=== PATIENT | female | born 1965 | race Caucasian/White ===

== ENCOUNTER 2016-10-11 14:49 | Emergency (ER) | payer SELFPAY ==
[~2016-10-11] VITALS: Ht 157.5 cm; Wt 115.0 kg
[2016-10-11] MEDS ORDERED: KETOROLAC 60MG/2ML VIAL IM ONE (16:45)
[2016-10-11 17:00] LABS: BASOPHILS % 0.2 % (0.0-2.0); EOSINOPHILS % 3.4 % (0.0-5.0); HEMOGLOBIN. 10.8 g/dL (12.0-16.0); LYMPHOCYTES % 24.9 % (20.0-50.0); MEAN CORPUSCULAR HEMOGLOBIN 25.5 pg (28.0-32.0); MEAN CORPUSCULAR VOLUME 80.1 fL (81.0-99.0); MEAN PLATELET VOLUME 7.6 fl (7.4-10.4); MONOCYTES % 5.9 % (2.0-8.0); NEUTROPHILS % 65.6 % (40.0-76.0); PLATELET 328 x1000/uL (130-400); RED BLOOD CELL COUNT 4.25 mill/uL (4.2-5.4); RED CELL DISTRIBUTION WIDTH 17.4 % (11.6-14.6)
[2016-10-11 17:02] LABS: CHLORIDE 104 mEq/L (98-107)
[2016-10-11 17:04] VITALS: BP 130/84
[2016-10-11 17:07] LABS: CARBON DIOXIDE 30 mEq/L (21-32)
== END 2016-10-11 19:17 | disposition home or self-care (01) ==
LOC: ER 15:15
DX: M79.672 Pain in left foot (principal); M79.671 Pain in right foot; F12.10 Cannabis abuse, uncomplicated; Z76.0 Encounter for issue of repeat prescription
CPT/HCPCS: 36415; 80053; 85025; 96372; 99284; J1885